=== PATIENT | female | born 1990 | race Caucasian/White ===

== ENCOUNTER 2017-01-23 13:28 | Inpatient (IN) | payer BC, OTHER ==
[~2017-01-23] VITALS: Ht 172.7 cm; Wt 63.5 kg
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
--- NOTE | 2017-01-23 16:13 | NUR ---
MEDICATION Dr. Sumner on unit evaluating pt with new order to have 1st dose of ativan 2 mg po and subutex 4mg sL is okay give without test. Pt with cows=19 and ciwa 13,noted and carried out.
--- NOTE | 2017-01-23 17:13 | NUR ---
PRN EVAL Pt sitting on bed. cows=6 ciwa=3. no distress noted at this time.
[2017-01-23] MEDS ORDERED: ALBU8.5H8 INH (17:16)
[2017-01-23] MEDS ORDERED: IBUP-1957 PO (17:16)
[2017-01-23] MEDS ORDERED: GUAI400T61 PO (17:16)
[2017-01-23] MEDS ORDERED: IBUP1TAB68 PO (17:16)
[2017-01-23] MEDS ORDERED: METH4TAB16 PO (17:16)
[2017-01-23 17:21] LABS: *URINE HCG, QUAL NEGATIVE (NEGATIVE)
[2017-01-23 17:25] LABS: *AMPHETAMINE, URINE NEGATIVE (NEGATIVE); *BARBITURATE, URINE NEGATIVE (NEGATIVE); *CANNABINOID, URINE POSITIVE (NEGATIVE); *COCCAINE, URINE NEGATIVE (NEGATIVE); *OPIATE, URINE POSITIVE (NEGATIVE); *PHENCYCLIDINE SCREEN,URINE NEGATIVE (NEGATIVE)
[2017-01-23 17:54] LABS: HEMATOCRIT 40.3 % (37-47); HEMOGLOBIN 13.4 G/DL (12.0-16.0); MEAN CORPUSCULAR HEMOGLOBIN 27.8 UUG (27.0-31.0); MEAN CORPUSCULAR HGB CONC 33 g/dL (32.0-37.0); MEAN CORPUSCULAR VOLUME 83.6 FL (81.0-99.0); PLATELET COUNT (AUTO) 213 K/UL (150-450); RED BLOOD CELL COUNT(AUTO) 4.82 MIL/UL (4.2-5.4); WHITE BLOOD COUNT (AUTO) 5.2 K/UL (4.0-11.2)
[2017-01-23 17:55] LABS: BASOPHILS % (AUTO) 0.2 % (0.0-2.0); EOSINOPHILS % (AUTO) 0.7 % (0.0-7.0); LYMPHOCYTES # (AUTO) 0.9 K/UL (0.8-4.8); MONOCYTES # (AUTO) 0.4 K/UL (0.1-1.30); MONOCYTES % (AUTO) 7.1 % (0.0-11.0); NEUTROPHILS # (AUTO) 3.9 K/UL (1.8-8.9)
[2017-01-23 18:02] LABS: ALANINE AMINOTRANSFERASE 22 U/L (14-59); ALKALINE PHOSPHATASE 81 U/L (50-136); AMYLASE 40 U/L (25-115); ASPARTATE AMINOTRANSFERASE 14 U/L (15-37); BILIRUBIN,TOTAL 0.3 mg/dL (0.2-1.0); CARBON DIOXIDE 28 mmol/L (21-32); CHLORIDE 105 mmol/L (98-107); CREATININE 0.6 mg/dL (0.6-1.3); GLUCOSE 96 mg/dL (74-106); MAGNESIUM 2.2 mg/dL (1.8-2.4); POTASSIUM 4.3 mmol/L (3.5-5.1); TOTAL PROTEIN, SERUM 8.7 g/dL (6.4-8.2); UREA NITROGEN, BLOOD 6 mg/dL (7-18)
[2017-01-23 18:06] LABS: ETHANOL < 3 MG/DL (0-0)
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
[2017-01-23 20:00] VITALS: BP 116/74
--- NOTE | 2017-01-23 22:15 | NUR ---
PRN Motrin Pt c/o generalized muscle and joint pain 11/19. PRN Motrin administered.
--- NOTE | 2017-01-23 23:15 | NUR ---
PRN Motrin reassessment PRN Motrin effective. Pt reports pain level is reduced to 3/10.
[2017-01-24] VITALS: BP 98/56
[2017-01-24 04:00] VITALS: BP 109/67
--- NOTE | 2017-01-24 04:00 | NUR ---
0400 COWS and CIWA deferred COWS and CIWA ordered Q4HWA. Pt is lying in bed resting with eyes closed. Vital signs obtained. Safety measures in place.
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
[2017-01-24 08:00] VITALS: BP 117/67
--- NOTE | 2017-01-24 08:25 | NUR ---
PRN administration Pt c/o diaphoresis, administered PRN clondine per MD order. Will continue to monitor pt.
--- NOTE | 2017-01-24 08:37 | NUR ---
MD communication Notified Dr Sumner about pt having a VTE score of 3, requesting muscle relaxers and requesting cough drops for her sore throat. Will continue to monitor pt. All other needs addressed at this time.
--- NOTE | 2017-01-24 09:37 | NUR ---
Reassessment Pt is sleeping soundly, no perspiration noted on skin. Medication effective. Will continue to monitor pt.
[2017-01-24 12:00] VITALS: BP 113/72
--- NOTE | 2017-01-24 12:15 | NUR ---
MD communication Notified Dr Sumner that pt has COWS of 12 and CIWA of 11. to enter orders.
--- NOTE | 2017-01-24 13:45 | NUR ---
Reassessment of 1x order Pt is sleeping soundly. Will continue to monitor pt.
[2017-01-24 16:30] VITALS: BP 94/61
--- NOTE | 2017-01-24 16:48 | NUR ---
PRN administration Pt has a COWS of 19, CIWA of 17, pain of 8/10, generalized. Dr Sumner aware. Administered 4mg subutex PRN, 2mg Ativan PRN and toradol per MD order. Will continue to monitor pt.
--- NOTE | 2017-01-24 17:00 | NUR ---
PRN administration Pt c/o agitation, administered PRN per MD order. Will continue to monitor pt.
--- NOTE | 2017-01-24 17:18 | NUR ---
Reassessment Pt states that her pain level has decreased to a 4/10, and pt has a COWS of 12. Pt states that she is feeling "better". Will continue to monitor pt. Dr Sumner is aware. States to continue to monitor the pt.
--- NOTE | 2017-01-24 18:00 | NUR ---
Reassessment Pt has a CIWA of 8 and states that she feels less agitated. All needs addressed at this time. Will continue to monitor pt.
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
[2017-01-24 20:00] VITALS: BP 106/69
[2017-01-25] VITALS: BP 93/57
--- NOTE | 2017-01-25 | NUR ---
0000 COWS and CIWA deferred COWS and CIWA ordered Q4HWA. Pt is lying in bed resting with eyes closed. Vital signs obtained. Respirations even and unlabored. Safety measures in place.
[2017-01-25 04:00] VITALS: BP 95/65
--- NOTE | 2017-01-25 04:00 | NUR ---
0400 COWS and CIWA deferred COWS and CIWA ordered Q4HWA. Pt is lying in bed resting with eyes closed. Vital signs obtained. Respirations even and unlabored. Safety measures in place.
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
--- NOTE | 2017-01-25 08:01 | NUR ---
START OF SHIFT Pt 26 y/o female admitted for heroin, etoh dependence. Pt received in room on bed with eyes closed resting, but easily arousable to name. Pt alert and oriented to name, place, and time. Perrla. Skin warm and moist to touch. Respirations even and unlabored. It was reported that pt slept for 9 hours last night. Bed on lowest position with side rails x2up for safety. Call light within reach. No distress noted at this time.
[2017-01-25 08:17] LABS: HEPATITIS B SURFACE AG Negative (Negative)
[2017-01-25 09:08] VITALS: BP 111/66
--- NOTE | 2017-01-25 11:19 | NUR ---
RX COMMUNICATIONS Per pt request, pharmacy made aware that pt wants to have pna vaccine to be administered tomorrow 01/26/17.
--- NOTE | 2017-01-25 12:21 | NUR ---
PRN Pt states has body pain 7/10. Toradol IM given and tolerated well.
--- NOTE | 2017-01-25 12:22 | NUR ---
PRN Pt with cows=12. Subutex po prn per MD order given and tolerated well.
[2017-01-25 13:14] VITALS: BP 109/67
--- NOTE | 2017-01-25 13:21 | NUR ---
PRN EVAL Pt with cows=6.
--- NOTE | 2017-01-25 13:21 | NUR ---
PRN EVAL Pt with c/o body aches 08/20.
[2017-01-25 17:27] VITALS: BP 93/61
--- NOTE | 2017-01-25 18:08 | NUR ---
END OF SHIFT Pt 26 y/o female admitted for heroin and etoh dependence. Pt alert and oriented to name, place, and time. Perrla. Skin warm and slightly moist to touch. Respirations even and unlabored. Bilateral hand tremors noted. Pt observed mostly in room today. Pt was seen by MD today. Pt medication compliant and tolerated well. No ASE noted. Bed on lowest position with side rails x2 up for safety. Call light within reach. No distress noted at this time.
--- NOTE | 2017-01-25 19:01 | NUR ---
PRN Pt with c/o nausea. Zofran odt prn per MD order given and tolerated well.
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
[2017-01-25 20:00] VITALS: BP 102/66
--- NOTE | 2017-01-25 20:38 | NUR ---
PRN Toradol Pt reports generalized joint and muscle aches 01/20. She is observed with facial grimacing. COWS 13 and CIWA 9. PRN Toradol administered.
--- NOTE | 2017-01-25 21:38 | NUR ---
PRN Toradol reassessment PRN Toradol effective. Pt reports pain level is reduced to 2/10.
[2017-01-26] VITALS: BP 89/54
[2017-01-26 04:00] VITALS: BP 108/73
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
[2017-01-26 08:00] VITALS: BP 102/66
--- NOTE | 2017-01-26 08:08 | NUR ---
START OF SHIFT: RECEIVED PT A/O X 4. SHE PRESENTS WITH BLUNTED AFFECT AND DEPRESSED MOOD. SHE DENIES S/I AND H/I. SHE REPORTS ANXIETY,RESTLESSNESS AND BODY ACHES. SHE DENIES S/I AND H/I.SUBUTEX/ATIVAN TAPER IN PROGRESS. COWS 6 CIWA 4. SHE STATES SHE IS EATING 100% OF MEALS. ENCOURAGED INCREASED FLUIDS TO ASSIST IN FACILITATING DETOX PROCESS. ENCOURAGED GROUP ATTENDANCE TO IMPROVE COPING SKILLS AND PREVENT RELAPSE. WILL CONTINUE TO MONITOR AND OFFER SUPPORT.
[2017-01-26 12:00] VITALS: BP 105/71
--- NOTE | 2017-01-26 15:20 | NUR ---
Therapist prompted client about group times. Client stated she would try to attend all groups today.
[2017-01-26 16:00] VITALS: BP 104/63
--- NOTE | 2017-01-26 18:33 | NUR ---
END OF SHIFT: PT CONTINUES ON ATIVAN /SUBUTEX TAPER. LAST CIWA 2 COWS 5. SHE SLEPT ON AND OFF DURING SHIFT BUT ATTENDED GROUPS. PT COMPLAINS OF BODY ACHES AND ANXIETY WHEN SHE IS AWAKE. PT WAS COMPLIANT WITH INCREASED FLUIDS AND MEDICATIONS. WILL PASS SHIFT REPORT TO ONCOMING NIGHT NURSE.
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
[2017-01-26 20:00] VITALS: BP 130/80
--- NOTE | 2017-01-26 21:00 | NUR ---
PRN Benadryl Pt c/o inability to sleep. PRN Benadryl administered. Safety measures in place : bed on lowest position with side rails x2 up for safety, call light within reach. Will continue to monitor closely and offer help.
--- NOTE | 2017-01-26 22:00 | NUR ---
RE-ASSESSMENT Vanessa Pt. is sleeping, RR=16, unlabored and even.Safety measures in place : bed on lowest position with side rails x2 up for safety, call light within reach. Will continue to monitor closely and offer help.
[2017-01-27] VITALS: BP 117/68
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
[2017-01-27 08:00] VITALS: BP 112/70
[2017-01-27 12:00] VITALS: BP 114/63
[2017-01-27 16:00] VITALS: BP 102/72
--- NOTE | 2017-01-27 17:53 | NUR ---
Deferred COWS/CIWA & Medication [id number] Pt is asleep in room. V/S stable. No COWS or CIWA. HELD Subutex 2mg SL, Baclofen 20mg and BuSpar 10mg due at 1700H; Notified Dr. Sumner.
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
[2017-01-27 20:00] VITALS: BP 101/60
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
--- NOTE | 2017-01-28 07:13 | NUR ---
START OF SHIFT Received report from night nurse. 26 year old female patient admitted on 01/23/17 for heroin, methamphetamine, ETOH and marijuana withdrawals. Pt is on a 5 day Ativan and 5 day Subutex taper and is tolerating well. S/S of discomfort from withdrawals is being managed with ordered medications. Allergies to PCN and Bananas. Most recent COWS is 5 and CIWA 4 at 0400. No PRN medication needed or administered at night. V/S remain WNL. Pt is resting in bed at this time. RR even and unlabored. Fall and seizure precautions in place, will continue to monitor.
--- NOTE | 2017-01-28 07:33 | NUR ---
PRN INHALER Pt c/o SOB, PRN Proair inhaler 2 puff administered as ordered. No distress noted at this time.
[2017-01-28 08:01] VITALS: BP 108/66
--- NOTE | 2017-01-28 10:39 | NUR ---
1:1 SITTER 1:1 initiated with FORMULA MAKER. Pt gait is unsteady. Safety measures are in place.
[2017-01-28 13:49] VITALS: BP 92/52
[2017-01-28] MEDS ORDERED: HYDR-3895 PO (15:36)
[2017-01-28] MEDS ORDERED: GABA-534 PO (15:36)
[2017-01-28] MEDS ORDERED: BACL20TA PO (15:36)
[2017-01-28] MEDS ORDERED: DIPH50CA37 PO (15:36)
[2017-01-28] MEDS ORDERED: DICY20TA28 PO (15:36)
[2017-01-28] MEDS ORDERED: CLON0.2T12 PO (15:36)
[2017-01-28] MEDS ORDERED: BUSP10TA3 PO (15:36)
[2017-01-28] MEDS ORDERED: IBUP-1957 PO (15:36)
[2017-01-28] MEDS ORDERED: QUET25TA PO (15:36)
[2017-01-28] MEDS ORDERED: ACET325T53 PO (15:36)
[2017-01-28 16:04] VITALS: BP 92/61
--- NOTE | 2017-01-28 17:17 | NUR ---
CLONIDINE 0.1MG Per MD order to administer Clonidine 0.1mg, b/p is 95/63, MD aware. Pt is stable.
--- NOTE | 2017-01-28 18:55 | NUR ---
END OF SHIFT 26 year old female patient admitted on 01/23/17 for heroin, methamphetamine, ETOH and marijuana withdrawals. Pt is on a 5 day Ativan and 5 day Subutex taper and is tolerating well. S/S of discomfort from withdrawals is being managed with ordered medications. Most recent COWS is 6 and CIWA 6 at 1700. B/P runs low, MD is aware. Pt has unsteady gait and remains on a 1:1 for safety. PRN inhaler provided and effective. RR even and unlabored. Pt has bouts of drowsiness. Pt states appetite is poor but nurse witnessed patient eat meals completely and snacks in between. Pt tolerates fluids well. Fall and seizure precautions in place, night nurse will continue to monitor.
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
[2017-01-28 20:00] VITALS: BP 97/56
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
--- NOTE | 2017-01-29 07:54 | NUR ---
START OF SHIFT Pt 26 year old female admitted for heroin etoh dependence. Pt received in room on bed awake with sitter 1:1 to monitor for safety. Pt alert and oriented to name, place, and time. Perrla. Skin warm and slightly moist to touch. Respirations even and unlabored. It was reported that pt slept for 7 hours last night. Bed on lowest position with side rails x2 up for safety. Call light within reach. No distress noted at this time.
[2017-01-29 08:02] VITALS: BP 104/59
[2017-01-29 12:00] VITALS: BP 132/68
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
--- NOTE | 2017-01-29 13:44 | NUR ---
PRN Pt agitated, upset in room. Seroquel po prn per MD order given and tolerated well.
--- NOTE | 2017-01-29 14:11 | NUR ---
SHERRY MORGAN Pt observed in room with watching television. No distress noted at this time.
--- NOTE | 2017-01-29 14:44 | NUR ---
SHERRY MORGAN Pt observed in room with eyes closed resting, but easily arousable to name. No distress noted at this time.
[2017-01-29 16:00] VITALS: BP 128/80
--- NOTE | 2017-01-29 18:35 | NUR ---
END OF SHIFT Pt 26 year old female admitted for heroin etoh dependence. Pt alert and oriented to name, place, and time. Perrla. Skin warm and slightly moist to touch. Respirations even and unlabored. Pt with 1:1 sitter for safety. Pt attended group activity today. Pt observed mostly in room throughout the day. Pt medication compliant and tolerated well. No ASE noted. Pt is scheduled to be discharged tomorrow. Bed on lowest position with side rails x2 up for safety. Call light within reach. No distress noted at this time.
[2017-01-29 20:00] VITALS: BP 112/72
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
[2017-01-30] VITALS: BP 92/58
--- NOTE | 2017-01-30 | NUR ---
Vital Signs BP 92/58, pulse 64, resp 16, SpO2 97% room air, temp 98.5 COWS/CIWA deferred d/t pt sleeping, to assess while pt is awake as ordered. Safety measures in place, Will continue to monitor
[2017-01-30 04:00] VITALS: BP 96/54
--- NOTE | 2017-01-30 04:00 | NUR ---
Vital Signs BP 96/54, pulse 71, resp 16, SpO2 97% room air, temp 97.7 COWS/CIWA deferred d/t pt sleeping, to assess while pt is awake as ordered. Safety measures in place, Will continue to monitor
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
[2017-01-30 08:21] VITALS: BP 153/68
[2017-01-30 08:32] VITALS: BP 153/68
--- NOTE | 2017-01-30 09:50 | NUR ---
DISCHARGE Patient discharged off the unit at 0950, prior to discharge patient was provided with education regarding all discharge instructions and teaching with good verbal understanding. Patients vital signs were stable prior to discharge. Patient with last cow score of: 2 and ciwa score of: 1. Patients prescriptions, discharge instructions and home medications were placed in patients personal duffel bag. Patient off the unit at 0950, in stable condition.
== END 2017-01-30 09:50 | disposition other institution (70) | DRG 895 ==
LOC: SRC 14:57
PROVIDERS: ADMIT Internal Medicine; ATTEND Internal Medicine
DX: F10.231 Alcohol dependence with withdrawal delirium (principal); M32.9 Systemic lupus erythematosus, unspecified; F11.23 Opioid dependence with withdrawal; M79.7 Fibromyalgia; Z83.3 Family history of diabetes mellitus; Z85.41 Personal history of malignant neoplasm of cervix uteri; Z81.8 Family history of other mental and behavioral disorders; F41.9 Anxiety disorder, unspecified; F15.23 Other stimulant dependence with withdrawal; Z91.89 Other specified personal risk factors, not elsewhere classified; F12.20 Cannabis dependence, uncomplicated; F17.210 Nicotine dependence, cigarettes, uncomplicated; Z20.5 Contact with and (suspected) exposure to viral hepatitis; F12.90 Cannabis use, unspecified, uncomplicated; G89.29 Other chronic pain
CPT/HCPCS: 36415; 70030-TC; 80307; 80349; 80361; 83735; 84703; 85025; 86580; 86592; 86705; 86803; 87340; 87806; 90732; A4663; C1758; G0480; J1885; Q0162; Q0163